=== PATIENT | female | born 1985 | race Caucasian/White ===

== ENCOUNTER 2017-03-18 21:59 | Emergency (ER) | payer SELFPAY ==
[~2017-03-18] VITALS: Ht 160 cm; Wt 88.5 kg
[2017-03-18 23:57] LABS: BLOOD UREA NITROGEN 16 mg/dL (7-18)
[2017-03-19 00:01] LABS: IS PT STATUS REG ER OR PRE ER? YES
[2017-03-19 00:22] VITALS: BP 121/83
== END 2017-03-19 01:48 | disposition home or self-care (01) ==
LOC: ED 03-19 01:40
DX: R07.89 Other chest pain (principal); R00.0 Tachycardia, unspecified; J45.909 Unspecified asthma, uncomplicated; Z79.82 Long term (current) use of aspirin
CPT/HCPCS: 36415; 71010; 80048; 82040; 84484; 85025; 85379; 93005

== ENCOUNTER 2018-02-19 03:17 | Emergency (ER) | payer MEDICAID ==
[~2018-02-19] VITALS: Ht 160 cm; Wt 96.0 kg
[2018-02-19] MEDS ORDERED: KETOROLAC 30 MG/1 ML IVPush ONE (04:00)
[2018-02-19] MEDS ORDERED: PROCHLORPERAZINE 5 MG/ML, 2ML IVPush ONE (04:00)
[2018-02-19] MEDS ORDERED: DIPHENHYDRAMINE 50 MG/ML, 1ML IVPush ONE (04:00)
[2018-02-19] MEDS ORDERED: PROCHLORPERAZINE 5 MG/ML, 2ML ONE (04:13)
[2018-02-19] MEDS ORDERED: KETOROLAC 30 MG/1 ML ONE (04:13)
[2018-02-19] MEDS ORDERED: DIPHENHYDRAMINE 50 MG/ML, 1ML ONE (04:13)
[2018-02-19 04:50] VITALS: BP 164/100
== END 2018-02-19 05:33 | disposition home or self-care (01) ==
LOC: ED 05:20
DX: G43.009 Migraine without aura, not intractable, without status migrainosus (principal); I10 Essential (primary) hypertension; J45.909 Unspecified asthma, uncomplicated; F17.200 Nicotine dependence, unspecified, uncomplicated
CPT/HCPCS: 96374; 96375; 99284; J0780; J1200; J1885

== ENCOUNTER 2019-05-06 14:44 | Emergency (ER) | payer MEDICAID ==
[~2019-05-06] VITALS: Ht 160 cm; Wt 96.8 kg
[2019-05-06 14:45] VITALS: BP 146/88
--- NOTE | 2019-05-06 15:33 | NUR ---
Patient/Caregiver given discharge instructions and they have confirmed that they understand the instructions. Patient ambulatory with steady gait.
== END 2019-05-06 15:36 | disposition home or self-care (01) ==
LOC: ED 15:20
DX: K08.89 Other specified disorders of teeth and supporting structures (principal); I10 Essential (primary) hypertension; J45.909 Unspecified asthma, uncomplicated; F17.200 Nicotine dependence, unspecified, uncomplicated
CPT/HCPCS: 99283; 99406

== ENCOUNTER 2019-10-10 14:27 | Emergency (ER) | payer MEDICAID ==
[~2019-10-10] VITALS: Ht 160 cm; Wt 82.3 kg
--- NOTE | 2019-10-10 14:43 | NUR ---
pt to ed statingvagina is "real dry, but now it's wet down there." pt states she may also be . lmp "end of august" unknown date. pt connected to monitors. vss. no needs expressed. call light within reach. ua collected and sent to lab. FRED Palacios to bs. awaiting further orders.
[2019-10-10] MEDS ORDERED: ALBUTEROL/IPRATROPIUM 2.5MG/0.5MG, 3 ML NPPB ONE (15:00)
[2019-10-10] MEDS ORDERED: ALBUTEROL/IPRATROPIUM 2.5MG/0.5MG, 3 ML ONE (15:01)
[2019-10-10 15:03] LABS: HCG UR SG 1.008 (1.003-1.030); MICROSCOPIC NOT IND
[2019-10-10] MEDS ORDERED: BUDESONIDE 0.5 MG/2 ML INHA ONE (15:09)
[2019-10-10 15:12] LABS: CULTURE INDICATED? NO
--- NOTE | 2019-10-10 15:19 | NUR ---
rt to bs.
--- NOTE | 2019-10-10 15:20 | NUR ---
pt to us.
--- NOTE | 2019-10-10 15:20 | NUR ---
all results back at this time. new orders for us and labs received.
--- NOTE | 2019-10-10 15:22 | NUR ---
pt resting in room. rt tx complete. vss. FRED Palacios to bs to update on results and poc. no need expressed. all questions answered. call light within reach. awaiting us and labs.
[2019-10-10] MEDS ORDERED: BUDESONIDE 0.5 MG/2 ML INHA INH ONE (15:30)
[2019-10-10 16:56] VITALS: BP 117/68
== END 2019-10-10 16:58 | disposition home or self-care (01) ==
LOC: ED 15:26
DX: O46.91 Antepartum hemorrhage, unspecified, first trimester (principal); G43.909 Migraine, unspecified, not intractable, without status migrainosus; J45.909 Unspecified asthma, uncomplicated; I10 Essential (primary) hypertension; F17.210 Nicotine dependence, cigarettes, uncomplicated; G89.29 Other chronic pain
CPT/HCPCS: 36415; 76801; 81003; 81025; 84702; 86901; 94640; 99284; J7620; J7626

== ENCOUNTER 2019-11-07 21:19 | Emergency (ER) | payer MEDICAID ==
[~2019-11-07] VITALS: Ht 160 cm; Wt 81.5 kg
--- NOTE | 2019-11-07 21:37 | NUR ---
THIS IS A 33 YO FEMALE COMING IN FOR RIGHT LOWER LEG PAIN RATED 5/10 STARTED WEDNESDAY. STATES "IT FEELS LIKE WHEN YOUR LEG FALLS ASLEEP AND THERE'S NO BLOOD FLOW. IT JUST ACHES". PATIENT DENIES ANY TRAUMA, NO WARMTH OR SWELLING NOTED, DENIES TENDERNESS WITH PALPATION. CURRENTLY RATED 5/10. PATIENT IS CURRENTLY 9 WEEKS WITH NO COMPLICATIONS. STATES MILD SOB, EXPIRATORY WHEEZES NOTED. A&OX4, VSS, NAD, CALL LIGHT IN REACH. DENIES NEEDS AT THIS TIME. PA IN ROOM
--- NOTE | 2019-11-07 22:01 | NUR ---
PATIENT BACK FROM
--- NOTE | 2019-11-07 23:04 | NUR ---
Patient/Caregiver given discharge instructions and they have confirmed that they understand the instructions. Patient ambulatory with steady gait.
[2019-11-07 23:07] VITALS: BP 116/67
== END 2019-11-07 23:09 | disposition home or self-care (01) ==
LOC: ED 22:25
DX: O99.89 Other specified diseases and conditions complicating pregnancy, childbirth and the puerperium (principal); M79.661 Pain in right lower leg; Z3A.00 Weeks of gestation of pregnancy not specified
CPT/HCPCS: 99284

== ENCOUNTER 2019-11-19 20:46 | Emergency (ER) | payer MEDICAID ==
[~2019-11-19] VITALS: Ht 160 cm; Wt 85.6 kg
[2019-11-19 20:58] VITALS: BP 130/68
[2019-11-19] MEDS ORDERED: ENOXAPARIN 80 MG/0.8 ML SQ SCH (23:00)
[2019-11-19 23:19] LABS: BASOPHILS # (AUTO) 0.04 x10^3/uL (0-0.1); BASOPHILS % (AUTO) 1 % (0-1); EOSINOPHILS % (AUTO) 7 % (1-7); LYMPHOCYTES # (AUTO) 1.86 x10^3/uL (1-3.4); LYMPHOCYTES % (AUTO) 31 % (22-44); MD NO; MEAN CORPUSCULAR HEMOGLOBIN 32.1 pg (27.0-34.8); MEAN CORPUSCULAR HGB CONC 34.4 g/dL (32.4-35.8); MEAN CORPUSCULAR VOLUME 93.4 fL (80-100); MEAN PLATELET VOLUME 8.4 fL (7.4-10.4); MONOCYTES # (AUTO) 0.53 x10^3/uL (0.2-0.8); MONOCYTES % (AUTO) 9 % (2-9); NEUTROPHILS # (AUTO) 3.07 x10^3/uL (1.8-6.8); NEUTROPHILS % (AUTO) 52 % (42-75); PLATELET COUNT 292 x10^3/uL (130-400); RED BLOOD COUNT 4.24 x10^6/uL (3.82-5.3); RED CELL DISTRIBUTION WIDTH 12.9 % (9.6-15.2)
[2019-11-19 23:24] LABS: ALBUMIN 2.9 g/dL (3.4-5.0); ANION GAP 6 mmol/L (5-15); CALCIUM 8.3 mg/dL (8.5-10.1); CHLORIDE 106 mmol/L (98-107); CREATININE 0.63 mg/dL (0.55-1.02)
[2019-11-19 23:34] LABS: INTERNATIONAL NORMALIZED RATIO 0.94 (0.93-1.1)
[2019-11-19] MEDS ORDERED: ENOXAPARIN 80 MG/0.8 ML ONE (23:58)
== END 2019-11-20 01:10 | disposition home or self-care (01) ==
LOC: ED 23:42
DX: O22.31 Deep phlebothrombosis in pregnancy, first trimester (principal); O99.89 Other specified diseases and conditions complicating pregnancy, childbirth and the puerperium; O10.011 Pre-existing essential hypertension complicating pregnancy, first trimester; O99.331 Smoking (tobacco) complicating pregnancy, first trimester; O99.511 Diseases of the respiratory system complicating pregnancy, first trimester; I82.431 Acute embolism and thrombosis of right popliteal vein; I82.441 Acute embolism and thrombosis of right tibial vein; J45.909 Unspecified asthma, uncomplicated; Z3A.11 11 weeks gestation of pregnancy
CPT/HCPCS: 36415; 80048; 82040; 85025; 85610; 85730; 96372; 99283; J1650

== ENCOUNTER 2020-04-28 16:59 | Emergency (ER) | payer MEDICAID ==
[~2020-04-28] VITALS: Ht 160 cm; Wt 93.1 kg
[2020-04-28 17:04] VITALS: BP 170/97
--- NOTE | 2020-04-28 17:49 | NUR ---
TO [facility] FROM LOBBY
[2020-04-28] MEDS ORDERED: METHADONE 40 MG TABLET.SOL PO ONE (18:30)
== END 2020-04-28 18:30 | disposition home or self-care (01) ==
LOC: ED 18:01
DX: O99.323 Drug use complicating pregnancy, third trimester (principal); F11.23 Opioid dependence with withdrawal; Z87.891 Personal history of nicotine dependence; Z3A.32 32 weeks gestation of pregnancy
CPT/HCPCS: 99283

== ENCOUNTER 2020-06-16 18:10 | Emergency (ER) | payer MEDICAID ==
[~2020-06-16] VITALS: Ht 160 cm; Wt 89.6 kg
--- NOTE | 2020-06-16 18:47 | NUR ---
PT HAD CSECTION ON THE 3RD. INCREASED PAIN. NO DRAINAGE. TAKE LOVENOX .80.
--- NOTE | 2020-06-16 18:47 | NUR ---
REPORT TO BRITTA
--- NOTE | 2020-06-16 18:53 | NUR ---
PT LAYING IN BED, CONNECTED TO BP AND O2 MONITORS. RESPIRATIONS EVEN AND UNLABORED, NO SIGNS OF DISTRESS. CALL LIGHT IN REACH, BED RAILS UP. WILL CONTINUE TO MONITOR.
[2020-06-16 18:54] VITALS: BP 116/71
== END 2020-06-16 19:34 | disposition home or self-care (01) ==
LOC: ED 19:12
DX: G89.18 Other acute postprocedural pain (principal); R10.30 Lower abdominal pain, unspecified; I10 Essential (primary) hypertension; J45.909 Unspecified asthma, uncomplicated; Z86.718 Personal history of other venous thrombosis and embolism; Z87.891 Personal history of nicotine dependence
CPT/HCPCS: 99281

== ENCOUNTER 2021-05-11 12:00 | Emergency (ER) | payer MEDICAID ==
[~2021-05-11] VITALS: Ht 160 cm; Wt 96.1 kg
[2021-05-11 12:03] VITALS: BP 128/81
--- NOTE | 2021-05-11 13:00 | NUR ---
owner/operator completed.
[2021-05-11] MEDS ORDERED: METH40TA3 PO (13:12)
--- NOTE | 2021-05-11 13:12 | NUR ---
MD exam completed.
--- NOTE | 2021-05-11 13:19 | NUR ---
Pt's visitor states she left suddenly. States he is going to see if he can get her to come back in. notified of elopement.
--- NOTE | 2021-05-11 13:30 | NUR ---
Pt returned to room with visitor at bedside. notified of pt's return and states he will now place some orders.
--- NOTE | 2021-05-11 13:55 | NUR ---
fruit harvest worker at bedside to speak with about inpatient detox options.
--- NOTE | 2021-05-11 14:03 | NUR ---
Pt noted walking out of room and states she is just going outside and will be right back. Father is visitor at bedside and remains in room at this time.
== END 2021-05-11 14:44 | disposition home or self-care (01) ==
LOC: ED 13:00
DX: F11.13 Opioid abuse with withdrawal (principal); R07.89 Other chest pain; I10 Essential (primary) hypertension; F17.200 Nicotine dependence, unspecified, uncomplicated
CPT/HCPCS: 93005; 99283